=== PATIENT | female | born 1980 | race Two or more races ===

== ENCOUNTER 2024-09-10 02:32 | Emergency (ER) | payer MEDICAID ==
[~2024-09-10] VITALS: Ht 162.6 cm; Wt 125.0 kg
[2024-09-10 03:21] VITALS: BP 227/137; PULSE 109; RESP 20; O2SAT 97
[2024-09-10] MEDS: IBUPROFEN 600 MG TAB PO ONE (03:39)
--- NOTE | 2024-09-10 03:39 | ED.PDOC ---
History of Present Illness HPI Comments 43-year-old female with a history of hypertension now complains bilateral ear pain and bilateral eye redness with some yellowish discharge from both her eyes for the last 3-4 days. Also a sore throat and chills malaise. Chief Complaint: Sore Throat Time Seen by MD: 03:27 Allergies: Coded Allergies: NO KNOWN ALLERGIES (Unverified , 09/10/24) Information Source: Patient Mode of Arrival: Ambulatory Severity: Moderate Timing: Days Duration: Since onset Past Medical History PAST MEDICAL HISTORY: HTN Surgical History: Unknown Constitutional: reports: chills, fatigue, malaise EENTM: reports: ear pain, eye pain, eye redness, throat pain All Other Systems: Reviewed and Negative Physical Exam General Appearance: Mild Distress, Obese HEENT: PERRL/EOMI, Pharyngeal Erythema, TM Abnormal (L), TM Abnormal (R) Neck: Full Range of Motion, Non-Tender, Normal, Normal Inspection Respiratory: Chest Non-Tender, Lungs Clear, No Accessory Muscle Use, No Respira tory Distress, Normal Breath Sounds Cardiovascular: No Edema, No JVD, No Murmur, No Gallop, Normal Peripheral Pulses, Regular Rate/Rhythm Breast Exam: Deferred Gastrointestinal: No Organomegaly, Non Tender, No Pulsatile Mass, Normal Bowel Sounds, Soft Genitalia: Deferred Pelvic: Deferred Rectal: Deferred Extremities: No calf tenderness, Normal capillary refill, Normal inspection, Normal range of motion, Non-tender, No pedal edema Musculoskeletal : Apperance: Normal Neurologic: Alert, campus safety officer II-XII nml as Tested, No Motor Deficits, Normal Affect, Normal Mood, No Sensory Deficits Cerebellar Function: Normal Reflexes: Normal Skin: Dry, Normal Color, Warm Lymphatic: No Adenopathy Was a procedure done? Was a procedure done?: No Differential Dx Considerations may include: Differential diagnosis includes but not limited to: angina, myocardial infarction, ischemic stroke, intracranial hemorrhage, acute renal injury, end- organ failure and others X-Ray, Labs, Meds, VS Vital Signs Date Time Temp Pulse Resp B/P (MAP) Pulse Ox O2 Delivery O2 Flow Rate FiO2 09/10/24 03:21 97.9 109 20 227/137 (167) 97 Time of 1ST Reevaluation: 03:37 Reevaluation 1ST: Unchanged Patient Education/Counseling: Diagnosis, Treatment Family Education/Counseling: No Family Present Departure 1 Departure Time of Disposition: 03:37 (no evidence of end-organ failure at this time) Impression: Primary Impression: Otitis media of both ears Additional Impressions: Bilateral conjunctivitis Hypertension Disposition: 01 HOME / SELF CARE / HOMELESS Condition: Stable Discharged With: Self Critical Care Note Critical Care Time?: No Stability Stability form required: No Heart Score Heart Score: Heart Score Response (Comments) Value History N/A 0 EKG N/A 0 Age N/A 0 Risk Factors N/A 0 Troponin N/A 0 Total 0 ESTRADA GEORGE MD Sep 10, 2024 03:39
[2024-09-10] MEDS: cloNIDine HCL 0.1 MG TAB PO ONE (03:40)
[2024-09-10] MEDS ORDERED: AMOX500C2 PO (03:43)
[2024-09-10] MEDS ORDERED: AMLO1TAB22 PO (03:43)
[2024-09-10] MEDS ORDERED: GENT0.3S10 EACHEYE (03:43)
== END 2024-09-10 04:03 | disposition left against medical advice (07) ==
LOC: ER 02:32
DX: H66.93 Otitis media, unspecified, bilateral (principal); H10.9 Unspecified conjunctivitis; I10 Essential (primary) hypertension

== ENCOUNTER 2024-09-17 08:32 | Emergency (ER) | payer MEDICAID ==
[~2024-09-17] VITALS: Ht 162.6 cm; Wt 119.8 kg
[~2024-09-17 08:32] MED LIST: AMLO1TAB22 PO; AMOX500C2 PO; GENT0.3S10 EACHEYE
[2024-09-17 09:54] VITALS: BP 169/95; PULSE 101; RESP 16; TEMP 98; O2SAT 99
[2024-09-17] MEDS ORDERED: ERY05OO OP (10:05)
[2024-09-17] MEDS ORDERED: KETO0.5S31 EACHEYE (10:05)
--- NOTE | 2024-09-17 10:10 | ED.PDOC ---
Eye-HPI HPI Comments 44 year old F presents for complaint of bilateral eye discomfort Symptoms started after having strep throat Was seen recently and was Rx eye Abx with minimal improvement C/o stinging irritating sensation Associated with photosensitivity Denies vision changes Denies eye discharge Denies hearing changes, nausea, vomiting Denies eye pain with movement, eye pain in general, difficulty keeping eye open, feeling of something stuck in the eye, sensitivity to light Chief Complaint: Eye Problem Time Seen by MD: 09:17 Reviewed Notes: Nurses Notes Allergies: Coded Allergies: NO KNOWN ALLERGIES (Unverified , 09/10/24) Home Meds Active Scripts Ketorolac Tromethamine (Ophth) (Ketorolac Tromethamine) 0.5 % Leah, 1 DROP EACHEYE QID for 2 Days, #5 ML 0 Refills Prov:AUSTYN SWANSON [employer]TING [employer] 09/17/24 Erythromycin (Erythromycin) 5 Mg/Gm Oin, 1 APPLIC OP TID for 10 Days, #5 GRAMS 0 Refills Prov:AUSTYN SWANSON [employer]TING [employer] 09/17/24 Gentamicin Sulfate (Gentamicin Sulfate) 0.3 % Leah, 1 DROP EACHEYE QID for 10 Days, #5 ML Prov:ESTRADA GEORGE MD 09/10/24 Amlodipine Besylate (Amlodipine Besylate) 5 Mg Tab, 1 TAB PO DAILY for 90 Days, #90 TAB 5 Refills Prov:ESTRADA GEORGE MD 09/10/24 Amoxicillin Trihydrate (Amoxicillin) 500 Mg Cap, 1 CAP PO BID for 10 Days, #20 CAP Prov:ESTRADA GEORGE MD 09/10/24 Information Source: Patient Mode of Arrival: Ambulatory Past Medical History PAST MEDICAL HISTORY: HTN Surgical History: Unknown Family History Family History: Reviewed,noncontributory to illness Social History Smoker: Non-Smoker Alcohol: Denies ETOH Use Drugs: Denies Drug Use All Other Systems: Reviewed and Negative (Per HPI) Physical Exam General Appearance: No Apparent Distress, Normal HEENT: Normal ENT Inspection, PERRL/EOMI (bilateral conjunctival injection), TMs Normal Neck: Full Range of Motion, Non-Tender, Normal, Normal Inspection Respiratory: Chest Non-Tender, Lungs Clear, No Accessory Muscle Use, No Respiratory Distress, Normal Breath Sounds Cardiovascular: No Edema, No JVD, No Murmur, No Gallop, Normal Peripheral Pulses, Regular Rate/Rhythm Breast Exam: Deferred Gastrointestinal: No Organomegaly, Non Tender, No Pulsatile Mass, Normal Bowel Sounds, Soft Genitalia: Deferred Pelvic: Deferred Rectal: Deferred Extremities: No calf tenderness, Normal capillary refill, Normal inspection, Normal range of motion, Non-tender, No pedal edema Musculoskeletal : Apperance: Normal Neurologic: Alert, locum tenens II-XII nml as Tested, No Motor Deficits, Normal Affect, Normal Mood, No Sensory Deficits Cerebellar Function: Normal Reflexes: Normal Skin: Dry, Normal Color, Warm Lymphatic: No Adenopathy Was a procedure done? Was a procedure done?: No EENT DIFF Eye: Viral, Iritis/Uveitis, Other X-Ray, Labs, Meds, VS Vital Signs Date Time Temp Pulse Resp B/P (MAP) Pulse Ox O2 Delivery O2 Flow Rate FiO2 09/17/24 09:54 98.0 101 16 169/95 (119) 99 98.0 09/17/24 09:54 101 16 99 Room Air 09/17/24 08:50 98.0 101 16 193/153 (166) 99 X-Ray, Labs, Meds, VS Comment Differential diagnosis considered includes: corneal abrasion, uveitis, foreign body, retinal detachment unlikey given age and no history flashes nor floaters. Patient alert, vss, well appearing. PERRLA, EOMi, visual acuity not affected. Patient appears to have an uncomplicated corneal abrasion. No evidence of foreign body, globe rupture, iritis, conjunctivitis or any other process requiring immediate medical or surgical intervention at this time. IOP: 12 bilaterally Slit lamp exam with evidence of corneal abrasion Patient had good improvement with proparacaine Will prescribe Erythromycin. Will refer for 24 hour follow up with an triple air valve tester. Topical ketorolac prescribed for pain. On reevaluation, patient had symptomatic improvement. Patient is stable for discharge at this time. External notes reviewed. Test results and diagnostic imaging interpreted. All diagnostic findings, discharge care, education and instructions provided Follow-up with PCP in 2 to 3 days Patient verbalized understanding and agreed to treatment plan Vital signs stable, afebrile, no acute distress noted Patient ambulatory with strong steady gait Advised to return precautions for any new or worsening symptoms, return to ER immediately for re-evaluation Patient is aware that the purpose of this visit was for an acute medical emergency requiring emergent stabilization. Chronic conditions, including malignancies have not been ruled out. Patient is instructed to follow up with PCP as directed and discharge instructions for continued care and workup. If unable to arrange follow-up, patient is to return to the emergency department for reassessment. Patient (parent or legal guardian if applicable) was given verbal and written discharge instructions and acknowledges understanding. Time of 1ST Reevaluation: 10:45 Reevaluation 1ST: Improved Patient Education/Counseling: Diagnosis, Treatment Family Education/Counseling: Diagnosis, Treatment Departure 1 Departure Time of Disposition: 10:46 Impression: Primary Impression: Corneal abrasion Qualified Codes: S05.00XA - Injury of conjunctiva and corneal abrasion without foreign body, unspecified eye, initial encounter Additional Impression: Iritis Disposition: HOME / SELF CARE / HOMELESS Condition: Stable e-Prescriptions Ketorolac Tromethamine (Ophth) (Ketorolac Tromethamine) 0.5 % Leah 1 DROP EACHEYE QID for 2 Days, #5 ML 0 Refills Prov: AUSTYN SWANSON [employer] 09/17/24 Erythromycin (Erythromycin) 5 Mg/Gm Oin 1 APPLIC OP TID for 10 Days, #5 GRAMS 0 Refills Prov: AUSTYN SWANSON [employer] 09/17/24 Critical Care Note Critical Care Time?: No Stability Stability form required: No Heart Score Heart Score: Heart Score Response (Comments) Value History N/A 0 EKG N/A 0 Age N/A 0 Risk Factors N/A 0 Troponin N/A 0 Total 0 AUSTYN WSANSON NP Sep 17, 2024 10:10
[2024-09-17] MEDS: FLUORESCEIN SOD OPTH TEST STRIP EACHEYE ONE (10:33)
== END 2024-09-17 10:49 | disposition home or self-care (01) ==
LOC: ER 08:32
DX: S05.02XA Injury of conjunctiva and corneal abrasion without foreign body, left eye, initial encounter (principal); S05.01XA Injury of conjunctiva and corneal abrasion without foreign body, right eye, initial encounter; H20.9 Unspecified iridocyclitis; I10 Essential (primary) hypertension; X58.XXXA Exposure to other specified factors, initial encounter; Y93.89 Activity, other specified; Y92.89 Other specified places as the place of occurrence of the external cause; Y99.8 Other external cause status